=== PATIENT | male | born 1980 | race African-American/Black ===

== ENCOUNTER → 2016-06-04 | Day surgery (SDC) | payer OTHER ==
[~2016-06-04] MED LIST: DEPAKOTE; INDERAL LA; PRILOSEC PO
--- NOTE | ~2016-06-04 | OR ---
Unit #: [id number] #: [id number] Patient: SATHYA DUDLEY [id number] [address] [address] [id number] O MR#: [id number] NAME: SATHYA DUDLEY ROOM: Date of Procedure: 06/04/2016 Admission Date: 06/04/2016 Surgeon: Kennedy Yoder M.D. : 1980 Attending Physician: Kennedy Yoder M.D. Primary Care Physician: Blanca Primary Care Physician PROCEDURE OPERATIVE NOTE REVISED REPORT PROCEDURE EGD with biopsy. PREOP DIAGNOSIS Epigastric pain. POSTOPERATIVE DIAGNOSIS Antral gastritis, hiatal hernia. PROCEDURE PERFORMED Esophagogastroduodenoscopy. ENDOSCOPIST Kennedy Yoder M.D. ANESTHESIA Monitored anesthesia care. DESCRIPTION OF PROCEDURE After adequate explanation of the risks, benefits and alternatives of the procedure, an informed consent by the patient was obtained. The patient was brought to the Endoscopy Suite. Intravenous sedation was administered. With the patient lying in the left lateral position and after placing the mouthpiece in the mouth, after adequate visualization of the vocal cords, a laryngoscopy was also done and the scope was passed via cricopharyngeus into the esophagus. After this, the esophageal mucosa was examined with an examination of the proximal, middle, and distal esophagus. The scope was then advanced into the stomach where a retroflexed view was obtained to examine the fundus and the angularis incisura. The lesser and greater curvature were examined. After adequate air insufflation, the antrum was then examined. The scope was then advanced to the pylorus and the scope was passed via pylorus up to the descending duodenum. The duodenal bulge and descending duodenum were examined very well. The scope was slowly withdrawn. The patient tolerated the procedure very well. FINDINGS ESOPHAGUS: Proximal esophagus normal. Middle esophagus normal. DISTAL ESOPHAGUS: A small hiatal hernia; otherwise, unremarkable. STOMACH, FUNDUS: Normal. ANGULARIS INCISURA: Normal. LESSER CURVATURE: Normal. Unit #: [id number] #: [id number] Patient: SATHYA DUDLEY GREATER CURVATURE: Normal. ANTRUM: Evidence of mucosal congestion, friability and hyperemia suggestive of gastritis. Biopsy obtained. No polyp or deformity. DUODENUM AND BULB: Normal. DESCENDING DUODENUM: Normal. ASSESSMENT AND PLAN The patient is a 35-year-old male with chronic epigastric pain and gastroesophageal reflux disease. EGD shows evidence of antral gastritis, hiatal hernia. He will be placed on proton pump inhibitors, antispasmodic agents and see how he responds to therapy. template added Dictated by... Ileana Asif/haim TD: 06/05/2016 07:35 JOB #: [id number] CC: David Young M.D. PROCEDURE OPERATIVE NOTE Page 1 of 1 X Kennedy Yoder MD X PROCEDURE OPERATIVE NOTE
== END | disposition home or self-care (01) ==
LOC: COPS 12:57
PROVIDERS: Internal Medicine Gastroenterology
PROC: 0DB78ZX Excision of Stomach, Pylorus, Via Natural or Artificial Opening Endoscopic, Diagnostic (ICD-10-PCS; principal; 2016-06-04 13:30)
DX: K29.50 Unspecified chronic gastritis without bleeding (principal); K44.9 Diaphragmatic hernia without obstruction or gangrene; K21.9 Gastro-esophageal reflux disease without esophagitis; R01.1 Cardiac murmur, unspecified; F17.200 Nicotine dependence, unspecified, uncomplicated; N28.1 Cyst of kidney, acquired; E04.1 Nontoxic single thyroid nodule
CPT/HCPCS: 88305; 88312; J2250